=== PATIENT | male | born 1945 | race Caucasian/White ===

== ENCOUNTER 2024-01-16 06:09 | Day surgery (SDC) | payer OTHER, SELFPAY ==
[2024-01-16] VITALS (9 sets, daily range): BP systolic 131–153; BP diastolic 69–81; BMI 22.3
[2024-01-16] MEDS: TYLENOL 1000 MG PO (06:38)
[2024-01-16] MEDS: NORMOSOL-R 1000 IV (06:39)
--- NOTE | 2024-01-16 09:51 | OR.RPT ---
Operative Report
Operative Report
Primary Surgeon: Sarah
Assisting: Samara ARNOLD
Pre-op Diagnosis: Bilateral inguinal hernias
Post-op Diagnosis: Same
Procedure Performed: Robot assisted laparoscopic repair of bilateral inguinal hernias
Anesthesia Type: GETA
Specimen / Cultures: None
Estimated Blood Loss: 5cc
Complications: Injury to left vas deferens, sacrificed
Operative Findings: Right indirect defect, small cord lipoma, left pantaloon defect, moderate cord lipoma; B/L XL MID 3D max
Date of surgery: 01/16/24
Indications:� This 78M developed symptomatic left inguinal hernia. There was concern on exam for a right inguinal hernia, he asked that we inspect the area today and repair if indicated along with the known left inguinal hernia. Robot assisted
laparoscopic repair was planned.
Description of procedure:� The patient was taken to the operating room and positioned into supine position. The patient�s abdomen was prepped and draped in standard sterile fashion. A time-out was completed verifying correct patient, procedure,
site, positioning, and implants and special equipment prior to beginning this procedure.� The hernia was manually reduced after induction. A stab incision was made in the left upper quadrant, a Veress needle was inserted and proper position was
confirmed by aspiration and saline drop test. Following this, pneumoperitoneum was created with insufflation of carbon dioxide to 12 mmHg. Then a 8mm robotic trocar was inserted above and to the left of the umbilicus. A laparoscope was inserted and
the area of initial trocar entry and Veress needle placement were both inspected and no injuries were found. Two 8mm trocars were then placed lateral to the rectus sheath under direct visualization.
Both inguinal regions were inspected and the median umbilical ligament, medial umbilical ligament, and lateral umbilical fold were identified. Attention was turned to the right groin where a defect was identified. The peritoneum was incised
transversely above the defect and a flap was developed in the caudad direction. Martin�s ligament was identified ultimately dissected to its junction with the iliac vein and the space of Retzius was developed bluntly.� The dissection was continued
inferiorly to the iliopubic tract, with care taken to avoid injury to the femoral branch of the genitofemoral nerve and the lateral femoral cutaneous nerve. The cord structures were parietalized.
The direct space was inspected and a hernia was not identified. The femoral space was inspected no defect was identified.� The indirect space was inspected and a hernia was identified and reduced by gentle traction. The canal was inspected and a
small cord lipoma was identified.
Attention was turned to the left groin and the above process was repeated. An indirect defect was identified and reduced along with a moderate cord lipoma. During this dissection an injury to the vas deferens was identified. It was controlled
proximally and distally with vicryl ties and divided in between the ties. A direct defect was also identified and reduced, the pseudosac was everted and secured to Martin's ligament with 2-0 vicryl suture.
Extra large right and left MID 3D max mesh was passed through a trocar. The mesh was placed into the preperitoneal space and moved into position to lay flat and completely cover the direct, indirect, and femoral spaces with overlap at the midline.
The mesh was secured into place using 2-0 vicryl suture to Martin�s ligament medially and laterally. Care was taken to avoid the inferolateral triangles containing the iliac vessels and genital nerves. The peritoneal flap was closed over the mesh
and secured with 2-0 monocryl stratafix suture in similar positions of safety. A 14g angiocath was used to decompress the preperitoneal space revealing good seal and all mesh in good position without folding or curling.
After ensuring adequate hemostasis, the trocars were removed and the pneumoperitoneum allowed to escape. The trocar incisions were closed at the skin level using 4-0 monocryl and topical skin adhesive. All counts were correct and the patient
tolerated the procedure well and was taken to the postanesthesia care unit in stable condition.
The assistance of Samara MARQUEZ was required due to the complexity of the procedure. During the procedure she assisted with retraction, resection, and closure of the wound.
== END 2024-01-16 11:15 | disposition home or self-care (01) ==
LOC: SDS 06:09
PROVIDERS: ATTENDING PHYSICIAN Surgery
DX: K40.20 Bilateral inguinal hernia, without obstruction or gangrene, not specified as recurrent (principal); N99.72 Accidental puncture and laceration of a genitourinary system organ or structure during other procedure; D17.6 Benign lipomatous neoplasm of spermatic cord
CPT/HCPCS: 49650; C1781